=== PATIENT | female | born 1990 | race Caucasian/White ===

== ENCOUNTER 2024-12-07 15:48 | Inpatient (IN) | payer OTHER ==
[2024-12-07] MEDS ORDERED: TRANEXAMIC 1,000 MG/100ML-NACL 1,000 MG in EMPTY BAG 1 BAG IV PRN (16:00)
[2024-12-07] MEDS ORDERED: TERBUTALINE 1 MG/ML VIAL SQ PRN (16:00)
[2024-12-07] MEDS ORDERED: CARBOPROST TROMETHAMINE 250 MCG/ML 1 ML AMP IM PRN (16:00)
[2024-12-07] MEDS ORDERED: OXYTOCIN 10 UNIT/ML 1 ML VIAL IM PRN (16:00)
[2024-12-07] MEDS ORDERED: METHYLERGONOVINE 0.2 MG/ML 1 ML AMP IM PRN (16:00)
[2024-12-07] MEDS: LACTATED RINGERS 1,000 ML IV SCH (16:17)
[2024-12-07 16:25] LABS: Basophils # (A) 0.04 10*3/uL (0.00-0.10); Basophils % (A) 0.3 %; Eosinophils # (A) 0.00 10*3/uL (0.04-0.35); Eosinophils % (A) 0.0 %; HCT 35.6 % (37.2-46.3); HGB 12.2 g/dL (12.0-15.0); Lymphocytes # (A) 0.58 10*3/uL (0.90-5.00); Lymphocytes % (A) 4.0 %; MCH 30.5 pg (27.0-32.0); MCHC 34.3 g/dL (32.0-37.0); MCV 89.0 fL (80.0-97.0); Monocytes # (A) 0.39 10*3/uL (0.20-1.00); Monocytes % (A) 2.7 %; Neutrophils # (A) 13.50 10*3/uL (1.80-7.70); Neutrophils % (A) 92.6 %; Platelet Count 192 10*3/uL (140-440); RBC 4.00 10*6/uL (4.10-5.20); RDW 13.3 % (11.5-14.5); WBC 14.57 10*3/uL (4.50-10.00)
[2024-12-07] MEDS ORDERED: SODIUM CHLORIDE 0.9% 250 ML BAG ONE (16:46)
[2024-12-07] MEDS ORDERED: fentaNYL (PF) 50 MCG/ML 5 ML AMP ONE (16:46)
[2024-12-07] MEDS ORDERED: ROPIVACAINE 5 MG/ML 30 ML VIAL ONE (16:46)
--- NOTE | 2024-12-07 19:37 | P.HPOB ---
History of Present Illness H&P Date: 12/07/24 Chief Complaint: 39-4/7 weeks, active labor The patient is a 34-year-old 1 para 0 admitted at 39-4/7 weeks as established by last menstrual period and confirmed by ultrasound. She is admitted to our triage in labor and delivery in active labor at 9 cm of dilation. She has had all of her care through [facility] and presented to our hospital as she was not certain that she would be able to get to [facility] in time. Her has reportedly been uncomplicated though we do not have a record but have her labs. On labor and delivery, all signs are reassuring with a category 1 heart rate tracing. She is reportedly group B strep positive and had antibiotic prophylaxis started upon admission. An epidural catheter has been placed for analgesia. Obstetrical history: 1 para 0 with current statistics listed in history of present illness. EDC of 12/10/2024 was apparently established by last menstrual period and confirmed by ultrasound. Laboratory workup demonstrates a blood type of A+ with a negative antibody screen. Rubella status is immune. The remainder of the laboratory workup is within normal limits. Gynecologic history: Unremarkable with no history of any infections to include STDs by report. Review of Systems Review of systems is confined to history of present illness. Past Medical History Past Medical History: No Reported History History of Any Multi-Drug Resistant Organisms: None Reported Past Surgical History: No Surgical Hx Reported Past Anesthesia/Blood Transfusion Reactions: No Reported Reaction Past Psychological History: No Psychological Hx Reported Smoking Status: Never smoker Past Alcohol Use History: None Reported Past Drug Use History: None Reported - Past Family History Father Family Medical History: Coronary Artery Disease (CAD) Medications and Allergies Allergies Allergy/AdvReac Type Severity Reaction Status Date / Time amoxicillin Allergy Rash/Hives Verified 12/07/24 16:00 Exam Vital Signs Temp Pulse Resp BP Pulse Ox 12/07/24 17:12 97.7 F 98 18 118/72 97 12/07/24 16:13 97.7 F 98 18 118/72 Intake and Output 12/07/24 12/07/24 12/07/24 06:59 14:59 22:59 Other: Weight 69.853 kg In general, this is a well-developed, well-nourished white female in no acute distress. Her heart has a regular rhythm and rate without murmur. Her lungs clear to auscultation bilaterally in all stewart. Her abdomen is gravid, nondistended, has normal active bowel sounds, soft, nontender, and without any palpable masses aside from uterine fundus. Her extremities are without any cyanosis, clubbing, or significant edema and are nontender to palpation bilaterally. Digital cervical examination demonstrates her cervix to be completely dilated at this time with the vertex and presentation at -1 station. Artificial rupture of membranes is carried out demonstrating clear fluid. Results Result Diagrams: 12/07/24 16:13 Abnormal Lab Results - Last 24 Hours (Table) 12/07/24 Range/Units 16:13 WBC 14.57 H (4.50-10.00) 10*3/uL RBC 4.00 L (4.10-5.20) 10*6/uL Hct 35.6 L (37.2-46.3) % MPV 12.5 H (9.5-12.2) fL Immature Gran # 0.06 H (0.00-0.04) 10*3/uL Neutrophils # 13.50 H (1.80-7.70) 10*3/uL Lymphocytes # 0.58 L (0.90-5.00) 10*3/uL Eosinophils # 0.00 L (0.04-0.35) 10*3/uL Assessment and Plan (1) Active labor at term Current Visit: Yes Status: Acute Code(s): ITJ9881 - SNOMED Code(s): 67412570 (2) Carrier or suspected carrier of group B Streptococcus Current Visit: Yes Status: Acute Code(s): Z22.330 - CARRIER OF GROUP B STREPTOCOCCUS SNOMED Code(s): 978086863 Plan: The patient has been admitted for active management of labor. Antibiotic prophylaxis has been started and in place for slightly more than 3 hours. An epidural catheter has been placed for analgesia. She will continue to have close maternal and surveillance and expectant management will be practiced. I would anticipate normal spontaneous vaginal delivery in the near future.
[2024-12-07] MEDS: OXYTOCIN 30 UNITS/500 ML NS 30 UNIT in SALINE 1 500ML.BAG IV SCH (21:21)
[2024-12-07 21:40] VITALS: RESP 16
[2024-12-07] MEDS ORDERED: ZOLPIDEM 5 MG TAB PO PRN (21:40)
[2024-12-07] MEDS ORDERED: SIMETHICONE 80 MG CHEWABLE PO PRN (21:40)
[2024-12-07] MEDS ORDERED: HYDROCORTISONE 2.5% RECTAL CREAM 30 GM TUBE RECTAL PRN (21:40)
[2024-12-07] MEDS ORDERED: diphenhydrAMINE 50 MG/ML 1 ML VIAL IVP PRN ×2 (21:40)
[2024-12-07] MEDS ORDERED: diphenhydrAMINE 25 MG CAP PO PRN (21:40)
[2024-12-07] MEDS ORDERED: LANOLIN CREAM 1 GM TUBE TOPICAL PRN (21:40)
[2024-12-07] MEDS: LIDOCAINE 0.5% (PF) 5 MG/ML (50 ML SDV) SQ PRN (21:43)
--- NOTE | 2024-12-07 21:45 | P.PROBDLV ---
Vaginal Delivery Note - . Vaginal Delivery Note: Date of delivery/service: 12/07/2024 The patient is a 34-year-old 1 para 0 admitted at 39-4/7 weeks by good dating parameters. She is admitted in active labor with all signs reassuring, category 1 heart rate tracing. She has had regular care through our practice out of [facility] and presented to our hospital as she felt she was an active labor and would not make it to that venue. Her was reportedly uncomplicated and group B strep status was positive. As a result, she had antibiotic prophylaxis started immediately upon admit. She additionally had an epidural catheter placed for analgesia. She remained intact and appr oximately 9 cm for approximately 3-1/2 hours at which time she was found to be complete and -1 station. At that time she underwent artificial rupture of membranes but had no urge to push. After approximately 45 minutes to an hour, she began to have some urge and pushed and then over the course of approximately 45 minutes to a normal spontaneous vaginal delivery of a viable 6 pound 13 ounce baby girl with Apgars of 9 at 1 minute and 9 at 5 minutes delivered in the right occiput anterior position. There was a nuchal cord x 2 which was reduced after delivery of the infant. She had received antibiotics for more than 4 hours at the time of delivery. The placenta was delivered spontaneously, intact, and grossly normal with a grossly normal, marginally inserted three-vessel cord. There was a second-degree midline perineal laceration noted which was repaired in standard fashion using 3-0 chromic catgut without difficulty. Estimated blood loss for the case was approximately 150 mL. There were no complications. All sponge, instrument, and needle counts were correct. Both mother and infant are resting comfortably in recovery.
[2024-12-08] MEDS: ACETAMINOPHEN TAB 500 MG TAB PO PRN (01:06)
[2024-12-08] MEDS: IBUPROFEN 800 MG TAB PO PRN (06:15)
[2024-12-08 06:34] LABS: Basophils # (A) 0.06 10*3/uL (0.00-0.10); Basophils % (A) 0.4 %; Eosinophils # (A) 0.05 10*3/uL (0.04-0.35); Eosinophils % (A) 0.3 %; HCT 30.7 % (37.2-46.3); HGB 10.5 g/dL (12.0-15.0); Lymphocytes # (A) 1.44 10*3/uL (0.90-5.00); Lymphocytes % (A) 9.4 %; MCH 30.5 pg (27.0-32.0); MCHC 34.2 g/dL (32.0-37.0); MCV 89.2 fL (80.0-97.0); Monocytes # (A) 1.30 10*3/uL (0.20-1.00); Monocytes % (A) 8.5 %; Neutrophils # (A) 12.37 10*3/uL (1.80-7.70); Neutrophils % (A) 80.6 %; Platelet Count 174 10*3/uL (140-440); RBC 3.44 10*6/uL (4.10-5.20); RDW 13.7 % (11.5-14.5); WBC 15.34 10*3/uL (4.50-10.00)
--- NOTE | 2024-12-08 08:42 | P.DS ---
Providers Date of admission: 12/07/24 16:03 Expected date of discharge: 12/08/24 Attending physician: Ritesh Matute Primary care physician: Stated None Hospital Course: Ms. Qureshi is a 34 year old now PPD#1 s/p . The patient is doing well this morning and had no acute events overnight. She has no complaints this morning. She reports minimal lochia, passing flatus, voiding without difficulty, ambulating, and eating/drinking without nausea or vomiting. Infant doing well at bedside, he will need circumcision prior to discharge but he has not yet voided. She denies chest pain, shortness of breathing, fevers, or chills overnight. She denies pain or swelling in the legs. restrictions are reviewed with the patient including pelvic rest for 6 weeks. The patient is encouraged to call the office if she experiences any heavy bleeding, foul-smelling discharge, breast complaints, or any if she has any other concerns. She will follow up in the office with Dr. Matute in 6 weeks for exam. All questions are answered. Patient Condition at Discharge: Good Plan - Discharge Summary Follow up Appointment(s)/Referral(s): Ritesh Matute MD [STAFF PHYSICIAN] - 6 Weeks Activity/Diet/Wound Care/Special Instructions: Instructions 1. Do not begin any exercise program for 3 weeks. 2. Do not resume sexual relations for 6 weeks or longer if uncomfortable. 3. You may take tub baths or showers at any time. 4. You may use tampons if desired after 6 weeks. 5. Keep any areas repaired with stitches clean and dry. 6. If you are not nursing, wear a good fitting, supportive bra during the day and limit fluid intake for at least 1 week to prevent breast engorgement. 7. Call the office, , within the next week to make appointment for your 6 week checkup if it has not already been made. 8. Report any of the following occurrences to the doctor promptly: a. Heavy, excessive bleeding b. Chills, fever c. Burning or frequency of urination d. Pain or redness and breasts if nursing e. Increasing pain or swelling of vulva (stitches). In addition to the above instructions, the following additional should be followed: 1. No heavy lifting or straining (exercising) until after 6 week checkup. 2. Keep abdominal incision clean and dry: You may wear a dressing if more comfortable. 3. Make office appointment for 2 weeks after delivery date.. Discharge Disposition: HOME SELF-CARE
[2024-12-08 09:36] VITALS: PULSE 87
[2024-12-08] MEDS: SENNOSIDES-DOCUSATE SODIUM 1 EACH TAB PO SCH (10:13)
[2024-12-08] MEDS: BENZOCAINE/MENTHOL SPRAY 1 GM/SPRAY AEROSOL TOPICAL PRN (15:24)
[2024-12-08 15:28] VITALS: BP 116/76; TEMP 98.4
== END 2024-12-08 22:40 | disposition home or self-care (01) | DRG 560 ==
LOC: FBPOP 15:48 → 4FBP 16:03
PROVIDERS: ADMIT Obstetrics & Gynecology; ATTEND Obstetrics & Gynecology
PROC: 10E0XZZ Delivery of Products of Conception, External Approach (ICD-10-PCS; principal; 2024-12-07)
PROC: 10907ZC Drainage of Amniotic Fluid, Therapeutic from Products of Conception, Via Natural or Artificial Opening (ICD-10-PCS; 2024-12-07)
PROC: 0KQM0ZZ Repair Perineum Muscle, Open Approach (ICD-10-PCS; 2024-12-07)
DX: O99.824 Streptococcus B carrier state complicating childbirth (principal); Z37.0 Single live birth; Z3A.39 39 weeks gestation of pregnancy; O70.1 Second degree perineal laceration during delivery
CPT/HCPCS: 59025; 85025; 86850; 86900; 86901; 99213